=== PATIENT | male | born 1995 | race Two or more races ===

== ENCOUNTER 2016-09-12 01:41 | Emergency (ER) | payer SELFPAY ==
[~2016-09-12] VITALS: Ht 172.7 cm; Wt 59.0 kg
[2016-09-12 02:29] LABS: BASO # 0.1 x10^3/uL (0.0-0.2); BASO % 1 % (0-3); EOS % 4 % (0-3); HEMATOCRIT 41.7 % (39.0-53.0); HEMOGLOBIN 14.1 g/dL (13.0-17.5); LYMPH % 27 % (24-48); MEAN CORPUSCULAR HEMOGLOBIN 30 pg (25-35); MEAN CORPUSCULAR HGB CONC 34 g/dL (31-37); MEAN CORPUSCULAR VOLUME 89 fL (79-100); MONO % 12 % (0-9); NEUT % 56 % (31-73); PLATELET COUNT 187 x10^3/uL (140-400); RED BLOOD COUNT 4.71 x10^6/uL (4.30-5.70); RED CELL DISTRIBUTION WIDTH 13.8 % (11.5-14.5); WHITE BLOOD COUNT 7.5 x10^3/uL (4.0-11.0)
[2016-09-12] MEDS ORDERED: KETOROLAC TROMETHAMINE 30 MG/ML INJ. IV ONE (02:30)
[2016-09-12] MEDS ORDERED: ONDANSETRON PF 4 MG/2 ML VIAL. IV ONE (02:30)
[2016-09-12] MEDS ORDERED: IV NORMAL SALINE 1000ML BAG 1,000 ML IV ONE (02:30)
[2016-09-12 02:32] LABS: BILIRUBIN,URINE NEGATIVE (NEG); GLUCOSE,URINE NEGATIVE (NEG); NITRITE,URINE NEGATIVE (NEG); PROTEIN,URINE NEGATIVE (NEG-TRACE); UROBILINOGEN,URINE 0.2 mg/dL (0.2 mg/dL)
[2016-09-12 02:42] LABS: CALCIUM 8.5 mg/dL (8.5-10.1); GFR 93.4; POTASSIUM 3.4 mmol/L (3.5-5.1)
[2016-09-12 02:44] LABS: BACTERIA,URINE FEW /HPF (0-FEW); RBC,URINE TNTC /HPF (0-2); SQUAMOUS EPITHELIAL CELL,UR OCC /LPF
[2016-09-12 02:48] LABS: ALBUMIN/GLOBULIN RATIO 1.3 (1.0-1.7); TOTAL BILIRUBIN 0.5 mg/dL (0.2-1.0); TOTAL PROTEIN 7.2 g/dL (6.4-8.2)
--- NOTE | 2016-09-12 03:52 | RAD ---
CT abdomen and pelvis without contrast HISTORY: Right flank pain and hematuria. TECHNIQUE: Helical multiplanar reconstructed noncontrast CT imaging of the abdomen and pelvis was acquired. Abdomen findings: Lung bases unremarkable. Posterior disc height loss and mild disc bulges L4-L5 and L5-S1. Bilateral nephrolithiasis. Mild right renal hydronephrosis associated with a 2 mm distal right ureteral obstructing calculus just above the bladder. Liver, gallbladder, pancreas, adrenals and spleen are unremarkable. GI tract including the appendix demonstrates no obstruction or inflammatory changes. No abdominal fluid. Pelvis findings: No bladder calculi. Prostate, rectum and bones are unremarkable. No pelvic fluid. IMPRESSION: 1. Mild right renal hydronephrosis due to a 2 mm distal ureteral obstructing calculus. 2. Bilateral nephrolithiasis. 3. The appendix is negative. Exposure: One or more of the following individualized dose reduction techniques were utilized for this examination: 1. Automated exposure control 2. Adjustment of the mA and/or kV according to patient size 3. Use of iterative reconstruction technique Electronically signed by: Malick Tolbert MD (09/12/2016 3:49 AM) [email or web address]
[2016-09-12 04:30] VITALS: BP 93/55
[2016-09-12] MEDS ORDERED: TAMS0.4C97 PO (04:31)
[2016-09-12] MEDS ORDERED: HYDR-971 PO (04:31)
--- NOTE | 2016-09-12 04:31 | PHYS DOC ---
Past Medical History Past Medical History: No Pertinent History Past Surgical History: Other Additional Past Surgical Histo: HERNIA Alcohol Use: Occasionally Drug Use: None Adult General Chief Complaint Chief Complaint: FLANK PAIN HPI HPI Patient is a 20 year old male who presents with flank pain. Patient reports 2 day history of right flank pain radiating to right lower quadrant. Associated with nausea no vomiting. Denies fevers/chills, diarrhea, constipation, dysuria/ hematuria, testicular pain. He had previous history of similar symptoms that resolved spontaneously. History of hernia repair as a child. Review of Systems Review of Systems Constitutional: Denies fever or chills HENT: Denies nasal congestion or sore throat Respiratory: Denies cough or shortness of breath Cardiovascular: Denies chest pain or edema GI: Reports abdominal pain and nausea, denies vomiting, or diarrhea : Denies dysuria or hematuria Musculoskeletal: Her port flank pain, denies joint pain Integument: Denies rash or skin lesions Neurologic: Denies headache, Current Medications Current Medications Current Medications Medications (Trade) Dose Ordered Sig/Wisam Start Time Stop Time Status Last Admin Dose Admin Ketorolac Tromethamine (Toradol) 30 mg 1X ONCE 09/12/16 02:30 09/12/16 03:35 DC 09/12/16 02:29 30 MG Ondansetron HCl (Zofran) 4 mg 1X ONCE 09/12/16 02:30 09/12/16 03:35 DC 09/12/16 02:29 4 MG Sodium Chloride 1,000 ml @ 1,000 mls/hr 1X ONCE 09/12/16 02:30 09/12/16 03:35 DC 09/12/16 02:30 1,000 MLS/HR Allergies Allergies Allergies Coded Allergies Type Severity Reaction Last Updated Verified No Known Drug Allergies 09/12/16 No Physical Exam Physical Exam Constitutional: Well developed, well nourished, no acute distress, non-toxic appearance. HENT: Normocephalic, atraumatic, bilateral external ears normal, oropharynx moist, nose normal. Eyes: conjunctiva normal, no discharge. Neck: supple, no stridor. Cardiovascular: RRR, no murmurs, no edema. Lungs & Thorax: LCTAB, no wheezing, no respiratory distress. Abdomen: soft, right lower quadrant tenderness without rebound or guarding, no masses or pulsatile masses, nondistended. Skin: Warm, dry, no erythema, no rash. Back: Right CVA tenderness is present Extremities: No tenderness, no edema. Neurologic: Alert and oriented X 3, no focal deficits noted. Psychologic: Affect normal, judgement normal, mood normal. Current Patient Data Vital Signs Vital Signs Date Time Temp Pulse Resp B/P (MAP) Pulse Ox O2 Delivery O2 Flow Rate FiO2 09/12/16 04:30 54 14 93/55 (68) 99 Room Air 09/12/16 02:06 97.8 97.8 Lab Values Laboratory Tests Test 09/12/16 01:59 09/12/16 02:08 Urine Collection Type Unknown Urine Color Yellow Urine Clarity Clear Urine pH 6.0 Urine Specific [place] 1.020 Urine Protein Negative mg/dL (NEG-TRACE) Urine Glucose (UA) Negative mg/dL (NEG) Urine Ketones (Stick) Negative mg/dL (NEG) Urine Blood Large (NEG) Urine Nitrite Negative (NEG) Urine Bilirubin Negative (NEG) Urine Urobilinogen Dipstick 0.2 mg/dL (0.2 mg/dL) Urine Leukocyte Esterase Small (NEG) Urine RBC Tntc /HPF (0-2) Urine WBC 5-10 /HPF (0-4) Urine Squamous Epithelial Cells Occ /LPF Urine Bacteria Few /HPF (0-FEW) Urine Mucus Mod /LPF White Blood Count 7.5 x10^3/uL (4.0-11.0) Red Blood Count 4.71 x10^6/uL (4.30-5.70) Hemoglobin 14.1 g/dL (13.0-17.5) Hematocrit 41.7 % (39.0-53.0) Mean Corpuscular Volume 89 fL (79-100) Mean Corpuscular Hemoglobin 30 pg (25-35) Mean Corpuscular Hemoglobin Concent 34 g/dL (31-37) Red Cell Distribution Width 13.8 % (11.5-14.5) Platelet Count 187 x10^3/uL (140-400) Neutrophils (%) (Auto) 56 % (31-73) Lymphocytes (%) (Auto) 27 % (24-48) Monocytes (%) (Auto) 12 % (0-9) H Eosinophils (%) (Auto) 4 % (0-3) H Basophils (%) (Auto) 1 % (0-3) Neutrophils # (Auto) 4.2 x10^3uL (1.8-7.7) Lymphocytes # (Auto) 2.0 x10^3/uL (1.0-4.8) Monocytes # (Auto) 0.9 x10^3/uL (0.0-1.1) Eosinophils # (Auto) 0.3 x10^3/uL (0.0-0.7) Basophils # (Auto) 0.1 x10^3/uL (0.0-0.2) Sodium Level 140 mmol/L (136-145) Potassium Level 3.4 mmol/L (3.5-5.1) L Chloride Level 105 mmol/L (98-107) Carbon Dioxide Level 28 mmol/L (21-32) Anion Gap 7 (6-14) Blood Urea Nitrogen 10 mg/dL (8-26) Creatinine 1.0 mg/dL (0.7-1.3) Estimated GFR (Cockcroft-Gault) 93.4 BUN/Creatinine Ratio 10 (6-20) Glucose Level 116 mg/dL (70-99) H Calcium Level 8.5 mg/dL (8.5-10.1) Total Bilirubin 0.5 mg/dL (0.2-1.0) Aspartate Amino Transferase (AST) 13 U/L (15-37) L Alanine Aminotransferase (ALT) 16 U/L (16-63) Alkaline Phosphatase 91 U/L (46-116) Total Protein 7.2 g/dL (6.4-8.2) Albumin 4.0 g/dL (3.4-5.0) Albumin/Globulin Ratio 1.3 (1.0-1.7) Laboratory Tests 09/12/16 02:08 Laboratory Tests 09/12/16 02:08 EKG EKG [] Radiology/Procedures Radiology/Procedures PROCEDURE: CT ABDOMEN PELVIS WO CONTRAST CT abdomen and pelvis without contrast HISTORY: Right flank pain and hematuria. TECHNIQUE: Helical multiplanar reconstructed noncontrast CT imaging of the abdomen and pelvis was acquired. Abdomen findings: Lung bases unremarkable. Posterior disc height loss and mild disc bulges L4-L5 and L5-S1. Bilateral nephrolithiasis. Mild right renal hydronephrosis associated with a 2 mm distal right ureteral obstructing calculus just above the bladder. Liver, gallbladder, pancreas, adrenals and spleen are unremarkable. GI tract including the appendix demonstrates no obstruction or inflammatory changes. No abdominal fluid. Pelvis findings: No bladder calculi. Prostate, rectum and bones are unremarkable. No pelvic fluid. IMPRESSION: 1. Mild right renal hydronephrosis due to a 2 mm distal ureteral obstructing calculus. 2. Bilateral nephrolithiasis. 3. The appendix is negative. Exposure: One or more of the following individualized dose reduction techniques were utilized for this examination: 1. Automated exposure control 2. Adjustment of the mA and/or kV according to patient size 3. Use of iterative reconstruction technique Electronically signed by: Jennifer Tolbert MD (09/12/2016 3:49 AM) [facility] DICTATED and SIGNED BY: JENNIFER TOLBERT MD DATE: 09/12/16 034[] Course & Med Decision Making Course & Med Decision Making Pertinent Labs and Imaging studies reviewed. (See chart for details) The patient presents with right flank pain. Vitals are stable. UA showed large blood. Clinically higher suspicion for ureteral colic than appendicitis. Obtained noncontrast CT of the abdomen and pelvis which confirms diagnosis of ureteral stone. He received IV fluids and pain medication the emergency department and his symptoms improved. Normal renal function, normal white blood cell count. He has white blood cells and leukocyte esterase in his urine concern for possible infection. He was comfortable with plan for discharge home. Gave prescriptions for [place] for severe pain, Flomax, and Cipro. Recommend rest, by mouth hydration with clear liquids, follow-up with urology within one week. Return to the emergency department for high fever, severe pain , uncontrolled vomiting, any otherwise worsening condition. Discharged home in stable and improved condition. Dragon Disclaimer Dragon Disclaimer This electronic medical record was generated, in whole or in part, using a voice recognition dictation system. Departure Departure Impression: Primary Impression: Ureteral colic Additional Impressions: Hydronephrosis Urinary tract infection Disposition: 01 HOME, SELF-CARE Condition: IMPROVED Referrals: NO PCP (PCP) KYLE LAND MD Patient Instructions: Kidney Stones, [id number] Additional Instructions: You were seen in the emergency department today for kidney stone. It is 2 mm. Please rest, drink clear liquids to stay hydrated, take Flomax to help the stone pass, take [place] for severe pain. No drinking alcohol or driving while taking [place]. Follow-up with Dr. Land in the urology clinic in 1 week if possible; if not accepting appointments, please see an alternate urologist. Come back for high fever, severe pain, uncontrolled vomiting, any otherwise worsening condition. Scripts Levofloxacin (LEVAQUIN) 750 Mg Tablet 1 TAB PO DAILY, #5 TAB Prov: RADHAMES MUIR MD 09/12/16 Tamsulosin Hcl (FLOMAX) 0.4 Mg Cap.er.24h 1 CAP PO DAILY, #14 CAP 0 Refills Prov: RADHAMES MUIR MD 09/12/16 Hydrocodone/Apap 5-325 (NORCO 5-325 TABLET) 1 Each Tablet 1 TAB PO PRN Q6HRS Y for PAIN, #10 TAB 0 Refills Prov: RADHAMES MUIR MD 09/12/16 Problem Qualifiers RADHAMES MUIR MD Sep 12, 2016 04:31
[2016-09-12] MEDS ORDERED: LEVO750T31 PO (04:33)
== END 2016-09-12 04:44 | disposition home or self-care (01) ==
LOC: ER 01:41
DX: N13.2 Hydronephrosis with renal and ureteral calculous obstruction (principal); N39.0 Urinary tract infection, site not specified
CPT/HCPCS: 36415; 74176; 80053; 81001; 85027; 87086; 96361; 96374; 96375; 99285; J1885; J2405; J7030

== ENCOUNTER 2018-08-08 20:54 | Emergency (ER) | payer SELFPAY ==
[~2018-08-08] VITALS: Ht 172.7 cm; Wt 68.0 kg
[~2018-08-08 20:54] MED LIST: HYDR-3164 PO; LEVO750T31 PO; TAMS0.4C97 PO
[2018-08-08 21:11] VITALS: BP 133/74
--- NOTE | 2018-08-08 21:21 | PHYS DOC ---
Past Medical History Past Medical History: No Pertinent History (IRVING PALACIOS APRN) Past Surgical History: Other Additional Past Surgical Histo: HERNIA (IRVING PALACIOS APRN) Alcohol Use: Occasionally Drug Use: None (IRVING PALACIOS APRN) Adult General Chief Complaint Chief Complaint: MECHANICAL FALL HPI HPI Patient is a 22 year old male presents for evaluation of right ankle injury. He reports around 3:00 this afternoon he fell approximately 8 feet off a roof and landed on his right foot. He did not have any pain until he took his boot off tonight. He has pain diffusely around the ankle and the Achilles tendon, unable to bear weight. He denies any other injuries. Denies hitting his head or loss of consciousness. He denies any pain to his knee or right hip. (IRVING PALACIOS APRN) Review of Systems Review of Systems Constitutional: Denies fever or chills [] Eyes: Denies change in visual acuity, redness, or eye pain [] HENT: Denies nasal congestion or sore throat [] Respiratory: Denies cough or shortness of breath [] Cardiovascular: No additional information not addressed in HPI [] GI: Denies abdominal pain, nausea, vomiting, bloody stools or diarrhea [] : Denies dysuria or hematuria [] Musculoskeletal: Reports left ankle pain[] Integument: Denies rash or skin lesions [] Neurologic: Denies headache, focal weakness or sensory changes [] Endocrine: Denies polyuria or polydipsia [] All other systems were reviewed and found to be within normal limits, except as documented in this note. (IRVING PALACIOS APRN) Current Medications Current Medications Current Medications Medications (Trade) Dose Ordered Sig/Wisam Start Time Stop Time Status Last Admin Dose Admin Acetaminophen/ Hydrocodone Bitart (Lortab 5/325) 2 tab 1X ONCE 08/08/18 22:00 08/08/18 22:01 DC 08/08/18 21:43 2 TAB (CARMEN RAMÍREZ DO) Allergies Allergies Allergies Coded Allergies Type Severity Reaction Last Updated Verified No Known Drug Allergies 09/12/16 No (CARMEN RAMÍREZ DO) Physical Exam Physical Exam Constitutional: Well developed, well nourished, in pain, non-toxic appearance. [] HENT: Normocephalic, atraumatic, bilateral external ears normal, oropharynx moist, no oral exudates, nose normal. [] Eyes: PERRLA, EOMI, conjunctiva normal, no discharge. [] Neck: Normal range of motion, no tenderness, supple, no stridor. [] Cardiovascular:Heart rate regular rhythm, no murmur [] Lungs & Thorax: Bilateral breath sounds clear to auscultation [] Skin: Warm, dry, no erythema, no rash. [] Back: No tenderness, no CVA tenderness. [] Extremities: diffuse ttp to left ankle, no deformities, very tender to achilles, unable to dorsiflex secondary to pain, negative cortés test, no palpable defect in achilles . [] Neurologic: Alert and oriented X 3, normal motor function, normal sensory function, no focal deficits noted. [] Psychologic: Affect normal, judgement normal, mood normal. [] (IRVING PALACIOS APRN) Current Patient Data Vital Signs Vital Signs Date Time Temp Pulse Resp B/P (MAP) Pulse Ox O2 Delivery O2 Flow Rate FiO2 08/08/18 21:11 99.2 85 16 133/74 (93) 95 Room Air 99.2 (CARMEN RAMÍREZ DO) EKG EKG [] (IRVING PALACIOS APRN) Radiology/Procedures Radiology/Procedures [] (IRVING PALACIOS APRN) Impressions: REASON: fall off roof, landed on rt foot PROCEDURE: ANKLE LEFT 3V Left ankle x-rays 3 views HISTORY: Fall, left ankle pain. FINDINGS: No fracture or dislocation. No talus osteochondral lesion. Mild lateral ankle soft tissue swelling. IMPRESSION: No acute osseous injury. Electronically signed by: Malick Tolbert MD (08/08/2018 9:59 PM) [facility] (IRVING PALACIOS APRN) Course & Med Decision Making Course & Med Decision Making Pertinent Labs and Imaging studies reviewed. (See chart for details) []Splint Assessment: Neurovascularly intact post splint placement with good fit. Patient was placed in Ze wrap and air splint and crutches. Recommended ice and elevation, follow-up with orthopedics, referral provided with discharge instructions. He was seen and examined by Dr. Ramírez as well. (IRVING PALACIOS APRN) Dwayne Disclaimer Dragon Disclaimer This electronic medical record was generated, in whole or in part, using a voice recognition dictation system. (IRVING PALACIOS APRN) Departure Departure Impression: Primary Impression: Ankle sprain Disposition: HOME, SELF-CARE Condition: STABLE Referrals: NO PCP (PCP) AMBAR PHILLIPS MD Patient Instructions: Ankle Sprain Scripts Hydrocodone/Apap 5-325 (NORCO 5-325 TABLET) 1 Each Tablet 1 TAB PO PRN Q6HRS PRN for PAIN, #12 TAB 0 Refills Prov: IRVING PALACIOS APRN 08/08/18 Ibuprofen (IBUPROFEN) 800 Mg Tablet 800 MG PO PRN Q6HRS PRN for INFLAMMATION, #20 TAB Prov: IRVING PALACIOS APRN 08/08/18 Attending Signature Attending Signature I have reviewed the PA/BELTING CUTTER's note and plan of care. I was available for consultation as needed during the visit in the emergency department. I agree with the clinical impression, plan, and disposition. (CARMEN RAMÍREZ DO) Problem Qualifiers Primary Impression: Ankle sprain Encounter type: initial encounter Involved ligament of ankle: unspecified ligament Laterality: left Qualified Codes: S93.402A - Sprain of unspecified ligament of left ankle, initial encounter IRIVNG PALACIOS APRN Aug 08, 2018 21:21 CARMEN RAMÍREZ DO Aug 11, 2018 18:02
[2018-08-08] MEDS ORDERED: HYDROcodone/APAP 5/325MG 1 TAB TABLET PO ONE (22:00)
--- NOTE | 2018-08-08 22:01 | RAD ---
Left ankle x-rays 3 views HISTORY: Fall, left ankle pain. FINDINGS: No fracture or dislocation. No talus osteochondral lesion. Mild lateral ankle soft tissue swelling. IMPRESSION: No acute osseous injury. Electronically signed by: Malick Tolbert MD (08/08/2018 9:59 PM) [facility]
[2018-08-08] MEDS ORDERED: IBUP-1060 PO (23:17)
[2018-08-08] MEDS ORDERED: HYDR-3164 PO (23:17)
== END 2018-08-08 23:53 | disposition home or self-care (01) ==
LOC: ER 20:54
DX: S93.492A Sprain of other ligament of left ankle, initial encounter (principal); W17.89XA Other fall from one level to another, initial encounter; Y93.89 Activity, other specified; Y92.89 Other specified places as the place of occurrence of the external cause; Y99.8 Other external cause status
CPT/HCPCS: 29515; 73610; 99284

== ENCOUNTER 2020-07-09 15:58 | Emergency (ER) | payer BC ==
[~2020-07-09] VITALS: Ht 172.7 cm; Wt 82.0 kg
[~2020-07-09 15:58] MED LIST changes: +IBUP-1060 PO
[2020-07-09 16:05] VITALS: BP 131/78
[2020-07-09] MEDS ORDERED: PENI500T PO (17:46)
--- NOTE | 2020-07-09 17:46 | PHYS DOC ---
Past Medical History Past Medical History: No Pertinent History Past Surgical History: Other Additional Past Surgical Histo: HERNIA Smoking Status: Current Every Day Smoker Alcohol Use: Occasionally Drug Use: None General Adult EDM: Chief Complaint: DENTAL PROBLEM HPI: HPI: 24-year-old male with no significant past medical history presents the ED with his girlfriend (patient consents to his/her/their knowledge and involvement in pts' medical care), complaints of left lower dental pain x 2 weeks stating his tooth broke when he was eating ribs. States he cannot see his dentist until the end of July and is asking if I can remove the tooth. Girlfriend, who works at [employer], and is asking for hydrocodone. States he has a diffuse headache. Has not taken Tylenol, ibuprofen, Orajel or any [id number] analgesia for the pain. Review of Systems: Review of Systems: Constitutional: Denies fever or chills or voice changes Eyes: Denies change in visual acuity. [] HENT: Denies nasal congestion or sore throat tunnel vision NECK: Denies neck stiffness or swollen Respiratory: Denies cough or shortness of breath, Cardiovascular: Denies chest pain or edema. [] GI: Denies abdominal pain, nausea, vomiting, Integument: Denies rash or diaphoresis Neurologic: Denies headache, neck pain, focal weakness or sensory changes. [] Psychiatric: Denies depression or anxiety. [] Heart Score: C/O Chest Pain: No Risk Factors: Risk Factors: DM, Current or recent (<one month) smoker, HTN, HLP, family history of CAD, obesity. Risk Scores: Score 0 - 3: 2.5% MACE over next 6 weeks - Discharge Home Score 4 - 6: 20.3% MACE over next 6 weeks - Admit for Clinical Observation Score 7 - 10: 72.7% MACE over next 6 weeks - Early Invasive Strategies Current Medications: Current Medications Medications (Trade) Dose Ordered Sig/Wisam Start Time Stop Time Status Last Admin Dose Admin Acetaminophen/ Hydrocodone Bitart (Lortab 7.5/325) 1 tab 1X ONCE 07/09/20 17:45 07/09/20 17:46 UNV Benzocaine (Hurricaine One) 1 spray 1X ONCE 07/09/20 17:45 07/09/20 17:46 UNV Dexamethasone (Decadron) 10 mg 1X ONCE 07/09/20 17:45 07/09/20 17:46 UNV Allergies: Allergies: Allergies Coded Allergies Type Severity Reaction Last Updated Verified No Known Drug Allergies 09/12/16 No Physical Exam: PE: Constitutional: Well developed, well nourished, in pain but not toxic appearing HENT: Normocephalic, atraumatic, no tongue elevation, significant decay with dental caries and cracked tooth, no obvious pulp exposed over tooth #20 or 21, no enlarged gingiva at base of tooth Eyes: EOMI, conjunctiva normal, no discharge. Neck: Normal range of motion, supple, normal appearance of neck Cardiovascular: S1/2 present, regular rhythm Lungs & Thorax: Speaking in full sentences, bilateral equal chest rise, no tachypnea or increased work of breathing, Skin: Warm, dry, Extremities: No tenderness, no cyanosis, Neuro moves all 4 extremities, no focal deficits noted. [] Psychologic: Affect normal, judgement normal, mood normal. [] Current Patient Data: Vital Signs: Vital Signs Date Time Temp Pulse Resp B/P (MAP) Pulse Ox O2 Delivery O2 Flow Rate FiO2 07/09/20 16:05 98.7 72 16 131/78 (95) 98 Room Air 98.7 EKG: EKG: [] Radiology/Procedures: Radiology/Procedures: [] Course & Med Decision Making: Course & Med Decision Making Pertinent Labs and Imaging studies reviewed. (See chart for details) Recommended Orajel or cepacol lozenges -do not take both at the same time in addition to [id number] analgesia. Hurricaine spray, dexamethasone and Kennedy given in ED, gf will drive patient home. Will discharge home with strict ED return precautions were given for fever, head or neck swelling, elevation of the tongue, difficulties breathing, dyspnea or neurologic deficits. Encouraged urgent outpatient follow-up with PMD for routine care/chronic analgesia and urgent dental clinic (list of dental clinics provided) follow-up for tooth removal. Life-threatening processes were considered but are low suspicion at this time, given history, physical exam and ED workup. Pt was educated on all prescription medications and adverse effects. All patient's questions were answered and pt was stable at time of discharge. Life/limb-threatening differential includes but is not limited to, Burke's angina, infection (periodontal or peritonsillar abscess, retropharyngeal abscess, Vincents angina, ANUG, pharyngeal/ingredient mixer/buccal space infection), trauma or fracture, dental fracture/subluxation/avulsion, dental bleeding or hemorrhage/DIC, pulpitis, alveolar osteitis or neoplasm I spoken with the patient and her caregivers. I explained the patient's condition, diagnoses and treatment plan based on the information available to me at this time. I have answered the patient and her caregiver's questions and addressed any concerns. The patient and her caregivers have a good understanding of patient's diagnosis, condition and treatment plan as can be expected at this point. Vital signs have been stable. Patient's condition is stable and appropriate for discharge from the emergency department. Patient will pursue further outpatient evaluation with primary care physician or other designated or consulting physician as outlined in the discharge instructions. The patient and/or caregivers are agreeable to this plan of care and follow-up instructions have been explained in detail. The patient and/or caregivers have received these instructions in written form and have expressed an understanding of the discharge instructions. The patient and/or caregivers are aware that any significant change of condition or worsening of symptoms should prompt immediate return to this or the closest emergency department or call to 1[facility] Disclaimer: Dwayne Disclaimer: This electronic medical record was generated, in whole or in part, using a voice recognition dictation system. Departure Departure Impression: Primary Impression: Pain due to dental caries Disposition: 06 HOME HEALTH CARE SERVICE Condition: STABLE Referrals: NO PCP (PCP) follow up with your primary care physician for routine care or FOLLOW UP WITH FAMILY MEDICINE: [address], [address] [place] [address] Patient Instructions: Dental Abscess, Dental Caries Additional Instructions: EMERGENCY DEPARTMENT GENERAL DISCHARGE INSTRUCTIONS Thank you for coming to [facility] Emergency Department (ED) today and trusting us with you care. We trust that you had a positive experience in our Emergency Department. If you wish to speak to the department management, you may call the Director at [phone]. YOUR FOLLOW UP INSTRUCTIONS ARE FOLLOWS: 1. Do you have a private Doctor? If you do not have a private doctor, please ask for a resource list of physicians or clinics that may be able to assist you with follow up care. 2. The Emergency Physicain has interpreted your x-rays. The X-Ray specialist will also review them. If there is a change in the findings, you will be notified in 48 hours when at all possible. 3. A lab test or culture has been done, your results will be reviewed and you will be notified if you need a change in treatment. ADDITIONAL INSTRUCTIONS AND INFORMATION: 1. Your care today has been supervised by a physician who is specially trained in emergency care. Many problems require more than one evaluation for a complete diagnosis and treatment. We recommend that you schedule your follow up appointment as recommended to ensure complete treatment of you illness or injury. If you are unable to obtain follow up care and continue to have a problem, or if your condition worsens, we recommend that you return to the ED. 2. We are not able to safely determine your condition over the phone nor are we able to give sound medical advice over the phone. For these safety reasons, if you call for medical advice we will ask you to come to the ED for further evaluation. 3. If you have any questions regarding these discharge instructions please call the ED at [phone]. SAFETY INFORMATION: In the interest of safety, wellness, and injury prevention; we encourage you to wear your sealbelt, if you smoke; quite smoking, and we encourage family to use a protective helmet for bicycling and other sporting events that present an increased risk for head injury. IF YOUR SYMPTOMS WORSEN OR NEW SYMPTOMS DEVELOP, OR YOU HAVE CONCERNS ABOUT YOUR CONDITION; OR IF YOUR CONDITION WORSENS WHILE YOU ARE WAITING FOR YOUR FOLLOW UP APPOINT MENT; EITHER CONTACT YOUR PRIMARY CARE DOCTOR, THE PHYSICIAN WHOSE NAME AND NUMBER YOU WERE GIVEN, OR RETURN TO THE ED IMMEDIATELY. Scripts Penicillin V Potassium (PENICILLIN V POTASSIUM) 500 Mg Tablet 2 TAB PO Q12HR for 10 Days, #40 TAB Prov: MENDY LANE DO 07/09/[address] DO July 09, 2020 17:46
[2020-07-09] MEDS ORDERED: DEXAMETHASONE 4 MG TABLET PO ONE (18:15)
[2020-07-09] MEDS ORDERED: BENZOCAINE ONE 20% MUCOSAL SPRAY. MM (18:15)
[2020-07-09] MEDS ORDERED: HYDROcodone/APAP 7.5/325MG 1 TAB TABLET PO ONE (18:15)
== END 2020-07-09 18:01 | disposition home health service (06) ==
LOC: ER 15:58
DX: K02.9 Dental caries, unspecified (principal); K08.89 Other specified disorders of teeth and supporting structures; F17.200 Nicotine dependence, unspecified, uncomplicated
CPT/HCPCS: 99284